=== PATIENT | male | born 1995 | race Caucasian/White ===

== ENCOUNTER 2016-08-25 01:11 | Emergency (ER) | payer OTHER ==
[2016-08-25 01:49] LABS: HEMOGLOBIN 13.9 gm/dl (14.0-17.5); RED BLOOD COUNT 4.49 M/UL (4.20-5.50); WHITE BLOOD COUNT 9.9 K/UL (4.5-11.0)
[2016-08-25 02:06] LABS: BUN/CREATININE RATIO 16 (0-10)
== END 2016-08-25 02:49 | disposition short-term general hospital (02) ==
LOC: ER1 01:11
PROVIDERS: Family Medicine
DX: S65.911A Laceration of unspecified blood vessel at wrist and hand level of right arm, initial encounter (principal); S61.411A Laceration without foreign body of right hand, initial encounter; W26.8XXA Contact with other sharp object(s), not elsewhere classified, initial encounter; Y93.89 Activity, other specified; Z23 Encounter for immunization
CPT/HCPCS: 36415; 73130; 80053; 85025; 85610; 85730; 90471; 90715; 96374; 96375; 96376; 99284; J0690; J2270; J2405; J7050

== ENCOUNTER 2016-09-27 16:45 | Emergency (ER) | payer OTHER | END 2016-09-27 17:25 | disposition home or self-care (01) | LOC: ER1 16:45 | DX: S61.411D Laceration without foreign body of right hand, subsequent encounter (principal); L03.113 Cellulitis of right upper limb; W26.8XXD Contact with other sharp object(s), not elsewhere classified, subsequent encounter | CPT/HCPCS: 99283 ==